=== PATIENT | male | born 1955 | race Caucasian/White ===

== ENCOUNTER → 2023-06-05 12:37 | Outpatient (REF) | payer MEDICARE, OTHER, SELFPAY | LOC: RAD 12:37 | PROVIDERS: ATTENDING PHYSICIAN Family Medicine | DX: F17.210 Nicotine dependence, cigarettes, uncomplicated (principal); Z13.6 Encounter for screening for cardiovascular disorders; I10 Essential (primary) hypertension | CPT/HCPCS: 76770 ==

== ENCOUNTER → 2023-12-17 09:22 | Outpatient (REF) | payer MEDICARE, OTHER, SELFPAY ==
[2023-12-17 11:24] LABS: % Eosinophils 5.4 % (0-6); % Immature Granulocytes 0.4 % (0-0.5); % Lymphocytes 22.4 % (20.5-51.1); % Monocytes 7.7 % (1.7-9.3); % Neutrophils 63.1 % (42.2-75.2); Absolute Basophils 0.1 10^3/uL (0-0.2); Absolute Eosinophils 0.4 10^3/uL (0-0.7); Absolute Lymphocytes 1.5 10^3/uL (1.2-3.4); Absolute Monocytes 0.5 10^3/uL (0.1-0.6); Absolute Neutrophils 4.4 10^3/uL (1.4-6.5); Hematocrit 32.6 % (39.0-52.0); Hemoglobin 11.5 g/dL (13.0-18.0); Mean Corp Hgb Conc. 35.3 g/dL (33.0-37.0); Mean Corpuscular Hgb 32.8 pg (27.0-31.0); Mean Corpuscular Volume 92.9 fL (80.0-94.0); Mean Platelet Volume 9.6 fL (7.4-10.4); Nucleated Red Blood Cells % 0 % (-); Platelet Count 215 10^3/uL (130-400); Red Blood Cell Count 3.51 10^6/uL (4.70-6.10); Red Cell Dist. Width 12.8 % (11.5-14.5); Urine Albumin 2+ (Neg - Trace); Urine Bilirubin Negative (Negative); Urine Character Clear (Clear); Urine Color Yellow; Urine Glucose Negative (Negative); Urine Ketone Negative (Negative); Urine Leukocyte Negative (Negative); Urine Nitrite Negative (Negative); Urine Occult Blood Negative (Negative); Urine Urobilinogen Negative (Neg - 1+); White Blood Cell Count 6.9 10^3/uL (4.8-10.8)
[2023-12-17 11:40] LABS: Urine Bacteria Few (Negative); Urine Red Blood Cell 0-2 /HPF (0-2); Urine Squamous Cell 0-2 /LPF (Few); Urine White Cell 0-2 /HPF (0-5)
[2023-12-17 11:50] LABS: ALT (SGPT) 73 U/L (0-50); AST (SGOT) 49 U/L (17-59); Alkaline Phosphatase 85 U/L (38-126); Blood Urea Nitrogen 23 mg/dl (9-20); Calcium 8.9 mg/dl (8.4-10.2); Carbon Dioxide 23 mmol/L (22-30); Chloride 107 mmol/L (98-107); Glucose 127 mg/dl (70-99); HDL Cholesterol 30 mg/dl; LDL Cholesterol, Calculated 59 mg/dl; Potassium 5.3 mmol/L (3.5-5.1); Sodium 140 mmol/L (135-145); Total Bilirubin 0.4 mg/dl (0.2-1.3); Total Cholesterol 139 mg/dl (50-199); Total Protein 6.5 g/dl (6.3-8.2); Triglyceride 254 mg/dl (10-149); Very Low Density Lipoprotein 50 mg/dl (0-30); eGFR > 60.00
[2023-12-17 12:03] LABS: Glycohemoglobin (HgbA1c) 5.8 % (4.0-5.6)
[2023-12-17 12:17] LABS: PSA, Total - Screen 0.96 ng/ml (0.0-4.0)
[2023-12-17 13:03] LABS: Microalbumin, Random Urine > 57.0 mg/dl (0.6-1.7)
== END ==
LOC: HWRAD 09:22
PROVIDERS: ATTENDING PHYSICIAN Family Medicine
DX: F17.210 Nicotine dependence, cigarettes, uncomplicated (principal); Z00.00 Encounter for general adult medical examination without abnormal findings; Z12.5 Encounter for screening for malignant neoplasm of prostate; E11.59 Type 2 diabetes mellitus with other circulatory complications; E11.21 Type 2 diabetes mellitus with diabetic nephropathy; E78.2 Mixed hyperlipidemia
CPT/HCPCS: 36415; 71271; 80053; 80061; 81003; 81015; 82043; 82570; 83036; 85025; G0103

== ENCOUNTER 2024-03-18 17:50 | Observation (INO) | payer MEDICARE, OTHER, SELFPAY ==
[2024-03-18 12:01] VITALS: BP 169/78
[2024-03-18 12:16] VITALS: BMI 37.4
[2024-03-18 12:28] LABS: % Basophils 0.7 % (0-2); % Eosinophils 3.1 % (0-6); % Immature Granulocytes 0.5 % (0-0.5); % Lymphocytes 22.8 % (20.5-51.1); % Monocytes 7.3 % (1.7-9.3); % Neutrophils 65.6 % (42.2-75.2); Absolute Basophils 0.1 10^3/uL (0-0.2); Absolute Eosinophils 0.2 10^3/uL (0-0.7); Absolute Lymphocytes 1.8 10^3/uL (1.2-3.4); Absolute Monocytes 0.6 10^3/uL (0.1-0.6); Hematocrit 33.3 % (39.0-52.0); Hemoglobin 11.4 g/dL (13.0-18.0); Mean Corp Hgb Conc. 34.2 g/dL (33.0-37.0); Mean Corpuscular Volume 93.5 fL (80.0-94.0); Mean Platelet Volume 9.6 fL (7.4-10.4); Nucleated Red Blood Cells % 0 % (-); Platelet Count 219 10^3/uL (130-400); Red Blood Cell Count 3.56 10^6/uL (4.70-6.10); Red Cell Dist. Width 12.5 % (11.5-14.5); White Blood Cell Count 7.7 10^3/uL (4.8-10.8)
--- NOTE | 2024-03-18 12:40 | ED.GENMED ---
History of Present Illness
General
Chief Complaint: Chest Problem
Source: patient
Exam Limitations: none
Time Seen by Provider: 03/18/24 12:24
History of Present Illness
History of Present Illness:
68-year-old male woke up 3 mornings ago with some difficulty with his vision almost a double vision like episode. Upon standing he had disequilibrium. No vertigo. He also had some brief vague left chest discomfort vague in nature. Not exertional
no shortness of breath nausea or diaphoresis. The following day, 2 days ago, he had recurring episodes of this visual issue with disequilibrium once in the morning once in the afternoon without chest pain. Yesterday he had another episode of
disequilibrium/visual issues with brief nonexertional chest discomfort. This is his first chance to get to the hospital. No symptoms today
Past History
Past History
ED Past Medical History: HTN, Hypercholesterolemia and NIDDM
ED Past Surgical History: Orthopedic and Urological
Review of Systems
Review of Systems
All Other Systems: Not applicable
Constitutional: Denies fever or chills
Respiratory: Reports no symptoms
ABD/GI: Reports no symptoms
Neurological: Denies headache, weakness or numbness
Phy Exam
Physical Exam
Physical Exam:
GENERAL: Alert and oriented in no apparent distress
EYE: Orbits normal.
NECK: Supple, questionable left carotid bruit
ENT: Pharynx without erythema
CARDIAC: Regular rate and rhythm without any obvious murmurs.
LUNGS: Clear breath sounds,normal
ABDOMEN: Soft, without focal tenderness or distention
NEUROLOGICAL: Alert and oriented , speech normal. Cranial nerves II through XII intact. [id number] normal. No drift. Lower extremity strength normal. Extraocular muscles intact
SKIN: Warm and dry, no rash or lesion, no discoloration, skin intact.
MUSCULOSKELETAL: No edema,no deformity.Good color
PSYCH: Normal and appropriate interaction.
Course
Orders/Labs/Results
Orders:
Orders
03/18/24 11:57
Electrocardiogram (*1) Urgent
Reason for Study: Chest Pain
03/18/24 11:58
EKG- Treatment ONCE
03/18/24 12:19
Complete Blood Count/With Diff Urgent
Comprehensive Metabolic Panel Urgent
Troponin I Urgent
03/18/24 12:38
CT Head W/o Iv Contrast Urgent
Comment:
Reason For Exam: Intermittent disequilibrium/double vision
CT Neck Angio W/wo Iv Contrast Urgent
Comment:
Reason For Exam: Intermittent disequilibrium/double vision/left car
03/18/24 13:04
CXR2 [CR Chest - 2 Views ] Urgent
Comment:
Reason For Exam: cp
03/18/24 13:55
MRI Brain [MR Brain Without Contrast] Routine
Comment:
Reason For Exam: diplopia
OK for patient to be off Cardiac Monitoring for MRI: No
Recent pill cam endoscopy?: No
03/18/24 14:00
Aspirin Low Dose EC [Aspir Low (Enteric Coated)] 81 mg PO DAILY
03/18/24 14:31
Clopidogrel Bisulfate [Plavix] 75 mg PO NOW STA
03/18/24 14:56
Acetylcholine Receptor Bind Ab [S] Routine
Alcohol Routine
T4, Free [Free T4] Routine
TSH Reflex To Free T4 Routine
Vitamin B1, Whole Blood [S] Routine
03/18/24 15:16
Urine Drug Abuse Screen Routine
Date Specimen was Collected: 03/18/24
Time Specimen was Collected: 15:14
Abnormal Lab Results
03/18/24
12:19
RBC 3.56 L 10^6/uL
(4.70-6.10)
Hgb 11.4 L g/dL
(13.0-18.0)
Hct 33.3 L %
(39.0-52.0)
MCH 32.0 H pg
(27.0-31.0)
Carbon Dioxide 19 L mmol/L
(22-30)
BUN 28 H mg/dl
(9-20)
Glucose 175 H mg/dl
(70-99)
ALT 51 H U/L
(0-50)
03/18/24 12:19
03/18/24 12:19
Vital Signs
Initial and Last Documented VS:
Initial Vital Signs
Temp Pulse Resp BP Pulse Ox
98.2 F 88 16 169/78 99
03/18/24 12:01 03/18/24 12:01 03/18/24 12:01 03/18/24 12:01 03/18/24 12:01
Last Documented Vital Signs
Temp Pulse Resp BP Pulse Ox
97.9 F 70 22 142/71 98
03/18/24 15:18 03/18/24 15:15 03/18/24 15:15 03/18/24 15:15 03/18/24 15:15
MDM/Problems Addressed
Differential Diagnosis Includes:
68-year-old male presents with 2 types of symptoms. Intermittent nonexertional left-sided chest discomfort. Currently asymptomatic. EKG normal. Troponin pending. Likely will be negative. I cannot relate this to his episodes of visual
issues/disequilibrium. Neurologically stable. Questionable left carotid bruit. Warrants a cardiac/neurologic workup. I did ask neurology for their opinion.
*Radiology
Radiology exam reviewed: radiology read reviewed (Negative CT head)
*Pulse Oximetry
Patient hypoxic: no
*EKG
Interpretation: normal
Comparison EKG: no changes
Heart Rate: 90
Rate: normal
Rhythm: sinus
[place]: normal axis
Interval: normal interval
QRS Pattern: normal QRS
Ischemia: no ischemia
*Check Grader Interpretation
Rate: normal
Interpretation: normal
Heart Rate: 88
Rhythm: sinus
*Critical Care Note
Total Time (30-74mins, 75-104mins- exclusive of procedures): Not Applicable
Data Reviewed
Review of Other/Old Records Reveals: Labs, Records and Testing
Update Note
Update Note:
Seen by neurology who recommended admission, aspirin, Plavix.
ED Attending Note
-
Portions of this chart may have been created with voice recognition software.� Occasional wrong word or��sound alike� substitutions may have occurred due to the inherent limitations of voice recognition software.
Discharge Plan
Departure
Patient Disposition: Admit
Date of Disposition: 03/18/24
Time of Disposition: 14:31
Presentation/result/management discussed w/ accepting MD/DO: neuro
Discharge Problem:
Possible cerebellar CVA, Intermittent chest pain
Prescriptions:
No Action
atorvastatin [Lipitor] 20 mg Tablet
20 mg PO HS
lisinopril 20 mg Tablet
20 mg PO DAILY
Theragen Tablet
1 tab PO DAILY
diphenhydramine-acetaminophen [Acetaminophen PM] 25-500 mg Tablet
2 tab PO HSPRN PRN (Reason: sleep)
metformin 500 mg Tablet Extended Release 24hr
1,000 mg PO BID
Referrals:
Lobito Lowe DO [Family Provider] -
Interventions
Interventions:
*Risk Screen - Suicide Last Done: 03/18/24 12:01
*General Assessment Last Done: 03/18/24 12:17
*Neglect/Abuse Screening Last Done: 03/18/24 12:01
ED- Fall Risk Assessment Last Done: 03/18/24 14:00
*ED COVID-19 Vaccine History Last Done: 03/18/24 15:23
ED- Cardiac Assessment Last Done: 03/18/24 15:29
ED- Pulmonary Assessment Last Done: 03/18/24 15:29
Discharge Date and Time
Print Language: GEORGIAN
[2024-03-18 12:42] LABS: ALT (SGPT) 51 U/L (0-50); AST (SGOT) 41 U/L (17-59); Albumin 4.1 g/dl (3.5-5.0); Alkaline Phosphatase 64 U/L (38-126); Blood Urea Nitrogen 28 mg/dl (9-20); Calcium 8.7 mg/dl (8.4-10.2); Carbon Dioxide 19 mmol/L (22-30); Chloride 106 mmol/L (98-107); Estimated Creatinine Clearance 110 ml/min; Glucose 175 mg/dl (70-99); Potassium 5.1 mmol/L (3.5-5.1); Sodium 139 mmol/L (135-145); Total Bilirubin 0.2 mg/dl (0.2-1.3); Total Protein 6.7 g/dl (6.3-8.2); eGFR > 60.00
[2024-03-18 12:54] LABS: Troponin I < 0.012 ng/ml
--- NOTE | 2024-03-18 13:35 | CON.NEURO ---
Consultation
Order
Date of Consultation: 03/18/24
Requesting Provider: Dr. Mike Goff
Reason for Consult: Diplopia
Neurology consultation note.
HPI: This is an 68-year-old right-handed man who presented to [facility] on 03/18/2024 with visual symptoms.
According to the patient he developed an acute intermittent painless binocular horizontal diplopia on 03/16/2024. He states that his symptoms were worse in the morning and early evening and have been improving in terms of duration and severity. He
is not sure about triggers. Due to transportation limitations patient medical attention has been delayed. No reports of eye pain, trauma, headache, ptosis, dysphagia, dysarthria or weakness.
ER VS: 173/73,76 , afebrile.
NSR, QTc Int : 415 ms
PDMP: No recently prescribed medication
Labs:Glucose�175, normal WBC, sodium, creatinine
PMH:HTN, DLP, IGT, BMI 37
PSH:BL knee arthroscopies, bilateral cataract surgery(2 months ago).
SH: , retired [employer], light smoker, denied excessive alcohol
FH:son-tremor
All:PNC
ROS:Constitutional: Negative. Negative for chills, fever and unexpected weight change.
HENT: Positive for hearing impaired
Eyes: Negative. Negative for photophobia, pain and visual disturbance.
Respiratory: Negative for cough, choking and shortness of breath.
Cardiovascular: Negative for chest pain, palpitations and leg swelling.
Gastrointestinal: Negative for abdominal pain and vomiting.
Endocrine: Negative. Negative for cold intolerance.
Genitourinary: Negative for dysuria, flank pain and urgency.
Musculoskeletal: Positive for intermittent back
Skin: Negative for rash.
Allergic/Immunologic: Negative. Negative for immunocompromised state.
Neurological: Positive for intermittent imbalance
Psychiatric/Behavioral: Negative for behavioral problems, confusion and hallucinations.
General: Well developed. In no acute distress.
Cardio: Regular rate and rhythm without murmur. Extremities are without cyanosis or edema.
Neuro:
Mental Status: Alert, oriented to person, place, and date. Normal attention and recall. Good fund of knowledge. Follows complex requests across the midline. Comprehension, naming, and repetition intact. Immediate and delayed recall 3/3.
Cranial Nerves: . Pupils are equally round and reactive to light. EOMs full. Visual cadet full to confrontation. No ptosis. No nystagmus. V1-V3 intact to light touch and pinprick bilaterally, symmetric. Face symmetric. Poor hearing AU. The
palate elevated well. SCMs and traps 5/5. Tongue midline. No dysarthria.
Motor: Normal bulk and tone. No pronator or arm drift. Strength 5/5 throughout. No clonus.
Reflexes: 2+ throughout the upper extremities and 1+ knees. . Plantar responses flexor bilaterally.
Sensory: Normal vibration at the toes
Coordination: Bilateral action hand tremor
Gait: deferred
Assessment and Plan:
I. Fluctuating painless horizontal diplopia. Differential diagnosis includes disorders of muscle and restrictive syndromes (isolated weakness of lateral rectus muscle, thyroid eye disease, neuromuscular junction disorders), central disorders (spasm
of the near reflex, midbrain pseudo-sixth nerve palsy).
II. HTN
III.BL SNHL
-Fall precaution
-Please obtain CTA head and neck
-Brain MRI without jono
-Aspirin 81 mg once a day, Plavix 75 mg twice a day
-Ophthalmology consult
-Please check TFTs, MG panel, urine tox, EtOH level
I personally reviewed all radiology and labs along with past medical records pertinent to current medical problems. Total time spent in patient care is 60 minutes.
Thank you for allowing us to participate in the care of this patient. We will continue to follow. Please do not hesitate to contact us with any questions or concerns.
Subjective/Objective
Subjective Data
Date of Service: March 18, 2024
Objective Data
Vital Signs
Temp Pulse Resp BP Pulse Ox
36.8 C 84 17 169/78 96
03/18/24 12:01 03/18/24 13:00 03/18/24 13:00 03/18/24 12:01 03/18/24 12:17
Lab Results
03/18/24 12:19
03/18/24 12:19
Sodium 139 mmol/L (135-145) 03/18/24 12:19
Potassium 5.1 mmol/L (3.5-5.1) 03/18/24 12:19
BUN 28 mg/dl (9-20) H 03/18/24 12:19
Glucose 175 mg/dl (70-99) H 03/18/24 12:19
Calcium 8.7 mg/dl (8.4-10.2) 03/18/24 12:19
Patient Allergies
Cephalosporins Allergy (Verified 02/03/21 18:31)
Unknown
penicillin V Allergy (Verified 02/03/21 18:31)
Hives
Penicillins Allergy (Verified 02/03/21 18:31)
Hives
Medications
-
Home Medications
�Medication �Instructions �Recorded
hydrocodone 5 mg-acetaminophen 325 1 tab PO Q4HPRN PRN severe pain 02/03/21
mg tablet #10 tabs
Vital Signs and Labs
-
Vital Signs and Labs:
Vital Signs
Temp Pulse Resp BP Pulse Ox
36.8 C 84 17 169/78 96
03/18/24 12:01 03/18/24 13:00 03/18/24 13:00 03/18/24 12:01 03/18/24 12:17
Lab Results
03/18/24 12:19
03/18/24 12:19
Sodium 139 mmol/L (135-145) 03/18/24 12:19
Potassium 5.1 mmol/L (3.5-5.1) 03/18/24 12:19
BUN 28 mg/dl (9-20) H 03/18/24 12:19
Glucose 175 mg/dl (70-99) H 03/18/24 12:19
Calcium 8.7 mg/dl (8.4-10.2) 03/18/24 12:19
Home Medications
-
Home Medications
hydrocodone 5 mg-acetaminophen 325 mg tablet 1 tab PO Q4HPRN PRN severe pain #10 tabs 02/03/21
[2024-03-18] MEDS: PLAVIX 75 MG PO (14:54)
[2024-03-18] MEDS: ASPIR LOW (ENTERIC COATED) 81 MG PO (14:54)
[2024-03-18 15:15] VITALS: BP 142/71
--- NOTE | 2024-03-18 15:18 | EDRN ---
Thursday pt had trouble focusing and was dizzy. Thursday was better. morning it started again and 'faded in and out all day.' Pt felt his vision was overlapped, not focused intermittently. Pt came to ED today because his son was able to
drive him here. Pt adds he thought he had some tightness in his chest Thursday through also. Pt has not had any of these symptoms today 'I feel like the regular knuckle head I am.' Pt denies cp, sob, abd pain, n/v, fever/chills/cough,
urinary symptoms, headache. Pt offers no complaints today.
[2024-03-18 15:20] LABS: Alcohol None Detected
[2024-03-18 15:36] LABS: Free T4 0.99 ng/dl (0.78-2.19)
[2024-03-18 15:44] LABS: Amphetamines Negative (Negative); Barbiturates Negative (Negative); Benzodiazepines Negative (Negative); Buprenorphine Negative (Negative); Cocaine Negative (Negative)
[2024-03-18 15:45] LABS: Marijuana Negative (Negative); Methadone Negative (Negative); Methamphetamines Negative (Negative); Opiates Negative (Negative); Phencyclidine Negative (Negative); Tricyclic Antidepressants Negative (Negative)
[2024-03-18 15:50] LABS: TSH Reflex To Free T4 2.13 uIU/ml (0.47-4.68)
--- NOTE | 2024-03-18 15:51 | W.PN.UPDATE ---
Update Note
Progress Note Update
This note serves as an addendum to the H&P by survey interviewer JOANNE Krysta RUELAS
HPI
68M Rt handed person , smoker Obesity BMI 37 HX HTN[facility].
- per patient , acute intermittent painless binocular double vision on 03/16/2024.
- symptoms were worse in the morning and early evening
- have been improving in terms of duration and severity. He is not sure about triggers.
Due to transportation limitations patient medical attention has been delayed.
ROS
No reports of eye pain, trauma, headache, ptosis, dysphagia, dysarthria or weakness.
PMH:as above
Vital Signs
Temp Pulse Resp BP Pulse Ox
97.9 F 70 22 142/71 98
03/18/24 15:18 03/18/24 15:15 03/18/24 15:15 03/18/24 15:15 03/18/24 15:15
PE:
General: NAD
HEENT: ALYSSA .
EOMs full. Visual cadet full to confrontation. No ptosis. No nystagmus.
Symmetric Face symmetric.
Poor hearing AU
Tongue midline.
No dysarthria.
Cardio: RRR S1 S2
Neuro: Alert, oriented to person, place, and date. Normal attention and recall.
Follows complex task
MS: No pronator or arm drift. Strength 5/5 throughout. No clonus.
Coordination: Bilateral action hand tremor
Gait: deferred
Abnormal Lab Results
03/18/24
12:19
RBC 3.56 L
Hgb 11.4 L
Hct 33.3 L
MCH 32.0 H
Carbon Dioxide 19 L
BUN 28 H
Glucose 175 H
ALT 51 H
HCT
No evidence of acute intracranial abnormality.
CT Neck Angio W/wo Iv Contrast
Atherosclerotic disease of the proximal internal carotid arteries bilaterally, with measurements of diameter reduction given above. No CT angiographic evidence to suggest hemodynamically significant stenosis of either proximal ICA.
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
Dominant left vertebral artery with smaller caliber hypoplastic right vertebral artery. No CT angiographic evidence to suggest vertebral artery dissection. Normal appearance of the basilar artery and the visualized posterior cerebral arteries.
Percent stenosis is calculated using NASCET criteria.
ASSESSMENT & PLAN
Fluctuating painless horizontal diplopia.
DDX: eval for CVA, peripheral origins as per Neuro and central origin
Benign HTN
- Fall precaution
- CTA head and neck
- Brain MRI without jono
- Aspirin and Plavix daily
- check TFTs, MG panel, urine tox, EtOH level
- Ophthalmology consult
- Neuro consult noted
DVT Px: SCD
Full code
IVU
--- NOTE | 2024-03-18 16:29 | HPS.HSE ---
Family Physician
-
Family Physician: Lobito Lowe DO
Chief Complaint
-
Diplopia
History of Present Illness
68-year-old male complaining of intermittent painless horizontal diplopia that began on 03/15/2024 was persistent all day then intermittent on Thursday and but none today. He reports the symptoms were worse in the morning and early
evening . He came to the ER today because he was unable to get medical treatment for the past 2 days due to lack of transportation. He denies headache, sore throat, rhinorrhea, cough, weakness, chest pain, palpitations, cough, shortness of breath,
abdominal pain, nausea, vomiting, diarrhea. He has past medical history of HTN, DM 2, HLD, class II obesity, active smoker, cataract extraction bilateral eyes with lens implants august 2023 Dr. Tayla Becker
Medical History
Past Medical History
Past Medical History: Reports Other
Additional Past Medical History:
HTN, DM 2, HLD, class II obesity, active smoker, cataract extraction bilateral eyes with lens implants august 2023 Dr. Tayla Becker
Past Surgical History: Reports Other
Additional Past Surgical History:
cataract extraction bilateral eyes with lens implants august 2023 Dr. Tayla Becker
Social History
Tobacco: Smoker (1 pack/day x 53 years)
Alcohol: Occasional (3 times a week 1 jyotsna)
Personal: (1-1/2 years)
Living: Alone
Employment: Retired ([employer] and then [employer] at age 52)
Family History
Family History: Other (Mother of sepsis father of motor vehicle accident patient has 1 full blood a brother who is healthy 1 maternal half brother who is healthy)
Allergies / Home Medications
Allergies reflects when Allergies were last updated in [employer].
Home Medications with original date entered in [employer]
Allergy/Medication List:
Allergies
Allergy/AdvReac Type Severity Reaction Status Date / Time
penicillin V Allergy Hives Verified 03/18/24 15:24
Penicillins Allergy Hives Verified 03/18/24 15:24
Home Medications
atorvastatin 20 mg tablet (Lipitor) 20 mg PO HS 03/18/24
diphenhydramine 25 mg-acetaminophen 500 mg tablet (Acetaminophen PM) 2 tab PO HSPRN PRN sleep 03/18/24
lisinopril 20 mg tablet 20 mg PO DAILY 03/18/24
metformin 500 mg tablet,extended release 24hr (osmotic) 1,000 mg PO BID 03/18/24
therapeutic multivitamin 1 tab PO DAILY 03/18/24
Review of Systems
-
History Source: Patient and Family (Son at bedside)
A 12 point ROS was completed and negative except as noted: Yes
Constitutional: Denies Fever or Chills
EENT: Reports Other (Bilateral horizontal diplopia x 3 days resolved today); Denies Sore Throat or Runny Nose
Respiratory: Denies Cough or Trouble Breathing
Cardiac: Denies Chest Pain, Diaphoresis, Palpitations or Syncope
Abdomen/GI: Denies Abdominal Pain, Nausea, Vomiting, Diarrhea, Constipated, Bloody Stools or Black Stools
: Denies Dysuria, Frequency, Flank Pain, Incontinence, Difficulty Voiding or Urgency
Musculoskeletal: Denies Joint Pain or Edema
Skin: Denies Itching or Rash
Neurological: Denies Dizzy, Headache, Weakness or Numbness
Endocrine: Reports No Symptoms
Hematologic/Lymphatic: Reports No Symptoms
Psych: Reports Calm
Physical Exam
Vital Signs
Vital Signs
Temp Pulse Resp BP Pulse Ox
97.9 F 70 22 142/71 98
03/18/24 15:18 03/18/24 15:15 03/18/24 15:15 03/18/24 15:15 03/18/24 15:15
Physical Exam
General: No Apparent Distress, Comfortable and Conversant; No Pain, Fever or Chills
HEENT: NormoCephalic, Anicteric, PERRLA (3 mm), [place] Conjunctivae and No Ptosis
Respiratory: Clear; No Wheezes, Rales or Rhonchi
Cardiac: S1/S2 and Regular Rhythm; No Murmur, Rub, Gallop or Peripheral Edema
GI: Soft, Non Tender, Non Distended, Normal Bowel Sounds and No Hepatosplenomegaly
Rectal: Deferred by Provider
Musculoskeletal: No Clubbing, No Cyanosis and No Edema
Skin: Warm and Dry; No Rash or Jaundice
Neuro: AO x 3, No Motor Deficits, Nonfocal/grossly intact, Cranial Nerves Intact and No Sensory Deficits; No Slurred Speech, Facial Droop, Tremors or Sedated
Psych: Calm
Laboratory Results
-
03/18/24 12:19
03/18/24 12:19
Laboratory Results
Total Bilirubin 0.2 mg/dl (0.2-1.3) 03/18/24 12:19
AST 41 U/L (17-59) 03/18/24 12:19
ALT 51 U/L (0-50) H 03/18/24 12:19
Alkaline Phosphatase 64 U/L (38-126) 03/18/24 12:19
Troponin I < 0.012 ng/ml 03/18/24 12:19
Data Reviewed
-
CT Scan: Report Reviewed by me
Lab Data: Labs Reviewed by me
Impression/Plan
-
Impression/plan:
OBS telemetry
#Binocular horizontal diplopia concern for possible giant cell arteritis
-Consult neurology
-Consult ophthalmology-Dr. Mccarthy
Discussion with Dr. Mccarthy from ophthalmology who states they are on low impact call do not see patient is inpatient however is recommending stat sed rate and CRP for concerns of giant cell arteritis and will see patient as follow-up or patient
may see his status controller Dr. Tayla Becker
-CTA head and neck
-Brain MRI without
-Continue aspirin 81 mg daily, start Plavix 75 mg daily
-TSH with free T4-normal
-UDS, EtOH negative
-Check ESR, CRP
PT/OT eval
CTA head neck
1. Atherosclerotic disease of the proximal internal carotid arteries bilaterally, with measurements of diameter reduction given above.
2. No CT angiographic evidence to suggest hemodynamically significant stenosis of either proximal ICA.
3. 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
4. Dominant left vertebral artery with smaller caliber hypoplastic right vertebral artery. No CT angiographic evidence to suggest vertebral artery dissection. Normal appearance of the basilar artery and the
visualized posterior cerebral arteries.
CXR: No acute cardiopulmonary abnormalities
#Nicotine abuse
1 pack/day x 53 years
Cessation advised
#HTN�benign
BP 142/71
-Continue lisinopril 20 mg daily
#HLD
-Check lipid profile
-Continue atorvastatin 20 mg at bedtime
#DM 2
Accu-Cheks with SSI, check HgbA1c
Hold metformin at 1000 mg twice daily
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
-Weight loss recommended, low-fat diabetic diet
DVT prophylaxis
SCDs
Full code per patient with son present at bedside
[2024-03-18 17:17] VITALS: BP 115/92
[2024-03-18 17:59] LABS: Erythrocyte Sed Rate 22 mm/hour (0-20)
[2024-03-18 18:08] LABS: C-Reactive Protein < 5.00 mg/L (0.0-10.00)
[2024-03-18 18:49] VITALS: BMI 34.9
[2024-03-18 19:34] VITALS: BP 155/76
[2024-03-18] MEDS: NICODERM TRANSDERMAL 21 MG TRANSDERM (20:46)
[2024-03-18] MEDS: LIPITOR 20 MG PO (21:01)
[2024-03-18 23:09] LABS: Glucose - Point of Care 172 mg/dl (70-99)
[2024-03-18 23:29] VITALS: BP 124/66
--- NOTE | 2024-03-18 23:29 | PTCARENOTE ---
P received from ED via stretcher at change of shift. Telemetry orders> SR w/ First degree AV block. VSS> afebrile, HR 69, RR 18, BP 155/76, pox 97% room air. PMH and medications reviewed by this RN and patient. Plan of care discussed. Pt is a 1PPD
smoker, Nicotine patch ordered and applied. Pt oriented to room, call fenton within reach.
[2024-03-19 03:09] VITALS: BP 136/61
[2024-03-19 07:00] VITALS: BP 142/60
[2024-03-19 07:14] LABS: % Basophils 0.6 % (0-2); % Eosinophils 3.6 % (0-6); % Immature Granulocytes 1.6 % (0-0.5); % Lymphocytes 24.6 % (20.5-51.1); % Monocytes 9.3 % (1.7-9.3); % Neutrophils 60.3 % (42.2-75.2); Absolute Basophils 0.1 10^3/uL (0-0.2); Absolute Eosinophils 0.3 10^3/uL (0-0.7); Absolute Immature Granulocytes 0.1 10^3/uL (0-0.05); Absolute Lymphocytes 2.1 10^3/uL (1.2-3.4); Absolute Monocytes 0.8 10^3/uL (0.1-0.6); Hematocrit 32.1 % (39.0-52.0); Hemoglobin 10.8 g/dL (13.0-18.0); Mean Corp Hgb Conc. 33.6 g/dL (33.0-37.0); Mean Corpuscular Volume 95.3 fL (80.0-94.0); Mean Platelet Volume 9.9 fL (7.4-10.4); Nucleated Red Blood Cells % 0 % (-); Platelet Count 209 10^3/uL (130-400); Red Blood Cell Count 3.37 10^6/uL (4.70-6.10); Red Cell Dist. Width 12.4 % (11.5-14.5); White Blood Cell Count 8.4 10^3/uL (4.8-10.8)
[2024-03-19 07:58] LABS: ALT (SGPT) 54 U/L (0-50); AST (SGOT) 42 U/L (17-59); Albumin 3.7 g/dl (3.5-5.0); Alkaline Phosphatase 70 U/L (38-126); Blood Urea Nitrogen 27 mg/dl (9-20); Calcium 8.3 mg/dl (8.4-10.2); Carbon Dioxide 21 mmol/L (22-30); Chloride 106 mmol/L (98-107); Estimated Creatinine Clearance 113 ml/min; Glucose 89 mg/dl (70-99); HDL Cholesterol 22 mg/dl; LDL Cholesterol, Calculated 50 mg/dl; Potassium 4.5 mmol/L (3.5-5.1); Sodium 137 mmol/L (135-145); Total Bilirubin 0.2 mg/dl (0.2-1.3); Total Cholesterol 115 mg/dl (50-199); Total Protein 6.1 g/dl (6.3-8.2); Triglyceride 216 mg/dl (10-149); Very Low Density Lipoprotein 43 mg/dl (0-30); eGFR > 60.00
[2024-03-19 08:29] LABS: Glucose - Point of Care 135 mg/dl (70-99)
[2024-03-19] MEDS: ZESTRIL 20 MG PO (09:31)
[2024-03-19] MEDS: ASPIR LOW (ENTERIC COATED) 81 MG PO (09:32)
[2024-03-19] MEDS: PLAVIX 75 MG PO (09:32)
[2024-03-19] MEDS: THERAGRAN 1 TABLET PO (09:33)
[2024-03-19 09:35] VITALS: BP 176/88; PULSE 76; O2SAT 99
[2024-03-19 09:43] VITALS: BP 176/88
[2024-03-19 11:00] VITALS: BP 125/66
[2024-03-19 12:16] LABS: Glycohemoglobin (HgbA1c) 5.7 % (4.0-5.6)
--- NOTE | 2024-03-19 12:30 | W.PN.NEURO.1 ---
Today's Communication / Plan
-
.
Subjective/Objective
Subjective Data
Date of Service: March 19, 2024
Neurology Follow Up Note.
Mr. Bellamy states that he has not had recurrent visual symptoms since the hospital presentation. No reports of headaches, motor or sensory deficits
Brain MRi-pending.
Labs:Glucose�175, normal WBC, sodium, creatinine
ESR-22, CRP, TSH-normal.
CTA head/neck-no evidence of hemodynamically significant stenosis.
PMH: HTN, DLP, IGT, BMI 37
PSH:BL knee arthroscopies, bilateral cataract surgery(2 months ago).
SH: , retired [employer], light smoker, denied excessive alcohol
FH:son-tremor
All:PNC
ROS:Constitutional: Negative. Negative for chills, fever and unexpected weight change.
HENT: Positive for hearing impaired
Eyes: Negative. Negative for photophobia, pain and visual disturbance.
Respiratory: Negative for cough, choking and shortness of breath.
Cardiovascular: Negative for chest pain, palpitations and leg swelling.
Gastrointestinal: Negative for abdominal pain and vomiting.
Endocrine: Negative. Negative for cold intolerance.
Genitourinary: Negative for dysuria, flank pain and urgency.
Musculoskeletal: Positive for intermittent back
Skin: Negative for rash.
Allergic/Immunologic: Negative. Negative for immunocompromised state.
Neurological: Positive for intermittent imbalance
Psychiatric/Behavioral: Negative for behavioral problems, confusion and hallucinations.
General: Well developed. In no acute distress.
Cardio: Regular rate and rhythm without murmur. Extremities are without cyanosis or edema.
Neuro:
Mental Status: Alert, oriented to person, place, and date. Normal attention and recall. Good fund of knowledge. Follows complex requests across the midline. Comprehension, naming, and repetition intact. Immediate and delayed recall 3/3.
Cranial Nerves: . Pupils are equally round and reactive to light. EOMs full. Visual cadet full to confrontation. No ptosis. No nystagmus. V1-V3 intact to light touch and pinprick bilaterally, symmetric. Face symmetric. Poor hearing AU. The
palate elevated well. SCMs and traps 5/5. Tongue midline. No dysarthria.
Motor: Normal bulk and tone. No pronator or arm drift. Strength 5/5 throughout. No clonus.
Reflexes: 2+ throughout the upper extremities and 1+ knees. . Plantar responses flexor bilaterally.
Sensory: Normal vibration at the toes
Coordination: Bilateral action hand tremor
Gait: deferred
Assessment and Plan:
I. Transient horizontal diplopia.
II. HTN
III. BL SNHL
-Fall precaution
-Aspirin 81 mg once a day, d/c Plavix.
-Mestinon 30 mg 3 times daily if diplopia returns
-Follow up MG panel
-Outpatient neurology follow-up in 1-2 weeks
I personally reviewed all radiology and labs along with past medical records pertinent to current medical problems. Total time spent in patient care is 36 minutes.
Thank you for allowing us to participate in the care of this patient. Please do not hesitate to contact us with any questions or concerns.
Objective Data
Vital Signs
Temp Pulse Resp BP Pulse Ox
36.5 C 72 17 125/66 98
03/19/24 11:00 03/19/24 11:00 03/19/24 11:00 03/19/24 11:00 03/19/24 11:00
Lab Results
03/19/24 06:18
03/19/24 06:18
Sodium 137 mmol/L (135-145) 03/19/24 06:18
Potassium 4.5 mmol/L (3.5-5.1) 03/19/24 06:18
BUN 27 mg/dl (9-20) H 03/19/24 06:18
Glucose 89 mg/dl (70-99) 03/19/24 06:18
Calcium 8.3 mg/dl (8.4-10.2) L 03/19/24 06:18
LDL Cholesterol, Calc 50 mg/dl 03/19/24 06:18
Ur Buprenorphine Negative (Negative) 03/18/24 15:16
Patient Allergies
penicillin V Allergy (Verified 03/18/24 15:24)
Hives
Penicillins Allergy (Verified 03/18/24 15:24)
Hives
Vital Signs and Labs
-
Vital Signs and Labs:
Vital Signs
Temp Pulse Resp BP Pulse Ox
36.5 C 72 17 125/66 98
03/19/24 11:00 03/19/24 11:00 03/19/24 11:00 03/19/24 11:00 03/19/24 11:00
Lab Results
03/19/24 06:18
03/19/24 06:18
Sodium 137 mmol/L (135-145) 03/19/24 06:18
Potassium 4.5 mmol/L (3.5-5.1) 03/19/24 06:18
BUN 27 mg/dl (9-20) H 03/19/24 06:18
Glucose 89 mg/dl (70-99) 03/19/24 06:18
Calcium 8.3 mg/dl (8.4-10.2) L 03/19/24 06:18
LDL Cholesterol, Calc 50 mg/dl 03/19/24 06:18
Ur Buprenorphine Negative (Negative) 03/18/24 15:16
Medications
-
Medications:
Generic Name Dose Route Start Last Admin
Trade Name Freq PRN Reason Stop Dose Admin
Acetaminophen 650 mg 03/18/24 18:46
Acetaminophen 325 Mg Tablet PO 04/15/24 18:45
Q4HPRN PRN
mild pain/HINES/temp> 100.4F
Acetaminophen 1,000 mg 03/18/24 18:55
Acetaminophen 500 Mg Tablet PO 04/15/24 18:54
HSPRN PRN
sleep
Aspirin 81 mg 03/18/24 14:00 03/19/24 09:32
Aspirin 81 Mg (Enteric Coated) Tablet PO 04/15/24 13:59 81 mg
DAILY KIZZY Administration
Atorvastatin Calcium 20 mg 03/18/24 22:00 03/18/24 21:01
Atorvastatin (Lipitor) 20 Mg Tablet PO 04/15/24 21:59 20 mg
HS KIZZY Administration
Clopidogrel Bisulfate 75 mg 03/19/24 08:00 03/19/24 09:32
Clopidogrel 75 Mg Tablet PO 04/16/24 07:59 75 mg
DAILY KIZZY Administration
Dextrose 12.5 grams 03/18/24 18:46
Dextrose 50% (0.5 Grams/Ml) 50 Ml Syringe IV 04/15/24 18:45
[id number] PRN
hypoglycemia
Protocol
Diphenhydramine HCl 50 mg 03/18/24 18:57
Diphenhydramine 50 Mg Capsule PO 04/15/24 18:56
HSPRN PRN
SLEEP
Glucagon 1 mg 03/18/24 18:46
Glucagon 1 Mg Vial IM 04/15/24 18:45
PRN PRN
hypoglycemia
Protocol
Insulin Aspart 0 units 03/19/24 07:30 03/19/24 09:16
Insulin Aspart Low Resistance 300 Units/3 Ml Pen.Injctr SC 04/16/24 07:29 Not Given
AC KIZZY
Protocol
Lisinopril 20 mg 03/19/24 08:00 03/19/24 09:31
Lisinopril 20 Mg Tablet PO 04/16/24 07:59 20 mg
DAILY KIZZY Administration
Multivitamins Therapeutic 1 tablet 03/19/24 08:00 03/19/24 09:33
Multivitamin Tablet PO 04/16/24 07:59 1 tablet
DAILY KIZZY Administration
Nicotine 21 mg 03/18/24 21:00 03/18/24 20:46
Nicotine 21 Mg Patch TRANSDERM 04/15/24 20:59 21 mg
DAILY@21 [facility] Administration
Sodium Chloride 0 flush 03/18/24 19:00
Sodium Chloride 0.9% (Flush) Syringe IV 04/15/24 18:59
PER PROTOCOL KIZZY
Home Medications
-
Home Medications
atorvastatin 20 mg tablet (Lipitor) 20 mg PO HS 03/18/24
diphenhydramine 25 mg-acetaminophen 500 mg tablet (Acetaminophen PM) 2 tab PO HSPRN PRN sleep 03/18/24
lisinopril 20 mg tablet 20 mg PO DAILY 03/18/24
metformin 500 mg tablet,extended release 24hr (osmotic) 1,000 mg PO BID 03/18/24
therapeutic multivitamin 1 tab PO DAILY 03/18/24
[2024-03-19 13:39] LABS: Glucose - Point of Care 120 mg/dl (70-99)
--- NOTE | 2024-03-19 14:25 | CM ---
Reviewed chart, met with patient to obtain information for assessment. Patient stated that he lives with his son, who was at bedside, in a two story home with one step to enter. He described himself as independent with his ADLs, personal care,
dressing and bathing. 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 Patient drives and can transport himself to his appointments and do his own grocery shopping.
Patient denied any DME at home.
He has never had VN services.
He has not been to a SNF.
Patient has a prescription plan and uses, [facility] in [place] for all of his medications.
Patient's PCP is, Lobito Lowe.
Patient stated that he hopes to be discharged today. His son confirmed that he can transport home. Patient expressed no needs.
Plan: Case management will continue to follow and assist with discharge planning. Home when stable.
--- NOTE | 2024-03-19 14:43 | W.PN.HOSP.TC ---
Today's Communication/Plan
-
dc to home
Assessment / Plan
Assessment / Plan
#Binocular horizontal diplopia concern for possible giant cell arteritis
neg ESR/CRP
-Discussed with neurology
okay to dc to home, will need follow up with neuro post dc
-Consult ophthalmology-Dr. Mccarthy
Discussion with Dr. Mccarthy from ophthalmology who states they are on low impact call do not see patient is inpatient however is recommending stat sed rate and CRP for concerns of giant cell arteritis and will see patient as follow-up or patient
will need to
see his geospatial engineer Dr. Tayla Beckerpost dc
-CTA head and neck
-Brain MRI without: No acute intracranial abnormality noted.
Sequelae of mild small vessel ischemic disease
-Continue aspirin 81 mg daily, as per neuro, does not need Plavix 75 mg daily
-TSH with free T4-normal
-UDS, EtOH negative
PT/OT eval
CTA head neck
1. Atherosclerotic disease of the proximal internal carotid arteries bilaterally, with measurements of diameter reduction given above.
2. No CT angiographic evidence to suggest hemodynamically significant stenosis of either proximal ICA.
3. 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
4. Dominant left vertebral artery with smaller caliber hypoplastic right vertebral artery. No CT angiographic evidence to suggest vertebral artery dissection. Normal appearance of the basilar artery and the
visualized posterior cerebral arteries.
CXR: No acute cardiopulmonary abnormalities
#Nicotine abuse
1 pack/day x 53 years
Cessation advised, must stop smoking
#HTN�benign
BP 142/71
-Continue lisinopril 20 mg daily
#HLD
-Check lipid profile
-Continue atorvastatin 20 mg at bedtime
#DM 2
Accu-Cheks with SSI, check HgbA1c
resume metformin at 1000 mg twice daily
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
-Weight loss recommended, low-fat diabetic diet
DVT prophylaxis
SCDs
Full code per patient with son present at bedside
dc to home
see dictated note
Anticipated Discharge: Today
Subjective/Interval History
-
Date of Service: March 19, 2024
Feels well, anxiously awaiting dc
Objective Data
-
Labs:
Laboratory Results
03/19/24
06:18
WBC 8.4
Hgb 10.8 L
Hct 32.1 L
Plt Count 209
Sodium 137
Potassium 4.5
Chloride 106
Carbon Dioxide 21 L
BUN 27 H
Creatinine 0.8
Glucose 89
Calcium 8.3 L
Total Bilirubin 0.2
AST 42
ALT 54 H
Alkaline Phosphatase 70
Vital Signs:
Vital Signs
Temp Pulse Resp BP Pulse Ox
97.7 F 72 17 125/66 98
03/19/24 11:00 03/19/24 11:00 03/19/24 11:00 03/19/24 11:00 03/19/24 11:00
I&O
03/18/24 03/19/24 03/20/24
06:59 06:59 06:59
Intake Total 480 / 480
Balance 480 / 480
Review of Systems
-
History Source: Patient and Family (son in room on second visit)
Constitutional: Reports No Symptoms
EENT: Reports No Symptoms Reported (eye symptoms fully resolved)
Respiratory: Reports No Symptoms
Abdomen/GI: Reports No Symptoms
Physical Exam
-
General: Well Developed, Well Nourished, No Apparent Distress and Obese
HEENT: Normocephalic, Atraumatic and Moist Mucous Membranes
Respiratory: Clear to Auscultation; Negative Wheezes, Rales or Rhonchi
Cardiac: Regular Rhythm and S1/S2
GI: Soft, Nontender and Nondistended
Musculoskeletal: No Clubbing, No Cyanosis and No Edema
[2024-03-19] MEDS: FLUAD (65 yr+) 2024-2025 FORMULA 0.5 ML IM (15:06)
[2024-03-19] MEDS: PREVNAR 20 0.5 ML IM (15:08)
[2024-03-19 15:11] VITALS: BP 122/104
--- NOTE | 2024-03-19 15:26 | W.DS.TRANS ---
DC Summary - [place]
-
Discharge Instructions:
Discharge Diagnosis/Procedures TIA
Diet Low Fat,Diabetic, Carb Controlled
Activity No strenuous activity
Driving Restrictions Not until seen by your Dr
Bathing Restrictions None
Instructions:
Stand-Alone Forms:
Changes to Home Medications: Yes
Discharge Medications:
DC Medications w/original date entered in [facility]
atorvastatin 20 mg tablet (Lipitor) 20 mg PO HS 03/18/24
diphenhydramine 25 mg-acetaminophen 500 mg tablet (Acetaminophen PM) 2 tab PO HSPRN PRN sleep 03/18/24
lisinopril 20 mg tablet 20 mg PO DAILY 03/18/24
metformin 500 mg tablet,extended release 24hr (osmotic) 1,000 mg PO BID 03/18/24
therapeutic multivitamin 1 tab PO DAILY 03/18/24
aspirin 81 mg tablet,delayed release 81 mg PO DAILY #30 tabs 03/19/24
Home Medication Changes
Aspirin 81 mg daily added
Pending Results: No
[2024-03-22 22:47] LABS: Vitamin B1, Whole Blood 140 nmol/L (70-180)
== END 2024-03-19 15:23 | disposition home or self-care (01) ==
LOC: 3 WEST ACU 17:50
PROVIDERS: Clinical Nurse Specialist Family Health; Emergency Medicine; ADMITTING PHYSICIAN Internal Medicine; ATTENDING PHYSICIAN Internal Medicine; EMERGENCY PHYSICIAN Emergency Medicine; FAMILY PHYSICIAN Family Medicine; OTHER PHYSICIAN Psychiatry & Neurology Neurology
DX: H53.2 Diplopia (principal); R07.89 Other chest pain; E78.00 Pure hypercholesterolemia, unspecified; I10 Essential (primary) hypertension; E66.812 Obesity, class 2; J98.11 Atelectasis; Q28.1 Other malformations of precerebral vessels; I49.1 Atrial premature depolarization; I67.82 Cerebral ischemia; I65.23 Occlusion and stenosis of bilateral carotid arteries; F17.210 Nicotine dependence, cigarettes, uncomplicated; E11.9 Type 2 diabetes mellitus without complications; Z79.84 Long term (current) use of oral hypoglycemic drugs; Z68.37 Body mass index [BMI] 37.0-37.9, adult; Z79.02 Long term (current) use of antithrombotics/antiplatelets; Z79.82 Long term (current) use of aspirin; Z88.0 Allergy status to penicillin; Z88.1 Allergy status to other antibiotic agents; Z98.42 Cataract extraction status, left eye; Z98.41 Cataract extraction status, right eye; Z79.4 Long term (current) use of insulin; Z23 Encounter for immunization
CPT/HCPCS: 70450; 70498; 70551; 71046; 80053; 80061; 80306; 82077; 82962; 83036; 84425; 84439; 84443; 84484; 85025; 85652; 86041; 86140; 90662; 90677; 93005; 97162; 97166; 99285; 99406; G0008; G0009; G0378; Q9967

== ENCOUNTER → 2025-04-05 10:41 | Outpatient (REF) | payer MEDICARE, OTHER, SELFPAY ==
[2025-04-05 11:45] LABS: Hematocrit 32.1 % (39.0-52.0); Hemoglobin 11.2 g/dL (13.0-18.0); Mean Corp Hgb Conc. 34.9 g/dL (33.0-37.0); Mean Corpuscular Volume 92.5 fL (80.0-94.0); Nucleated Red Blood Cells % 0 % (-); Platelet Count 260 10^3/uL (130-400); Red Cell Dist. Width 12.7 % (11.5-14.5)
[2025-04-05 12:02] LABS: Urine Character Clear (Clear)
[2025-04-05 12:51] LABS: Urine Squamous Cell 0-2 /LPF (Few)
[2025-04-05 12:52] LABS: Urine Red Blood Cell 0-2 /HPF (0-2); Urine White Cell 0-2 /HPF (0-5)
[2025-04-05 13:32] LABS: Glycohemoglobin (HgbA1c) 5.9 % (4.0-5.9)
[2025-04-05 16:41] LABS: ALT (SGPT) 61 U/L (0-50); AST (SGOT) 46 U/L (17-59); Albumin 3.9 g/dl (3.5-5.0); Alkaline Phosphatase 95 U/L (38-126); Blood Urea Nitrogen 33 mg/dl (9-20); Calcium 8.6 mg/dl (8.4-10.2); Carbon Dioxide 19 mmol/L (22-30); Chloride 106 mmol/L (98-107); Glucose 118 mg/dl (70-99); HDL Cholesterol 30 mg/dl; LDL Cholesterol, Calculated 55 mg/dl; Potassium 5.2 mmol/L (3.5-5.1); Sodium 133 mmol/L (135-145); Total Protein 6.9 g/dl (6.3-8.2); Very Low Density Lipoprotein 54 mg/dl (0-30); eGFR > 60.00
[2025-04-05 16:52] LABS: Microalb - Urine Creatinine 78.700 mg/dl
[2025-04-05 17:22] LABS: PSA, Total - Screen 0.89 ng/ml (0.0-4.0); TSH 3.78 uIU/ml (0.47-4.68)
[2025-04-05 18:16] LABS: Microalbumin, Random Urine > 57.0 mg/dl (0.6-1.7)
== END ==
LOC: REG 10:41
PROVIDERS: ATTENDING PHYSICIAN Family Medicine
DX: E11.21 Type 2 diabetes mellitus with diabetic nephropathy (principal); Z00.00 Encounter for general adult medical examination without abnormal findings; E11.59 Type 2 diabetes mellitus with other circulatory complications; I10 Essential (primary) hypertension; E78.2 Mixed hyperlipidemia; N18.2 Chronic kidney disease, stage 2 (mild); Z12.5 Encounter for screening for malignant neoplasm of prostate; R74.01 Elevation of levels of liver transaminase levels
CPT/HCPCS: 36415; 80053; 80061; 81003; 81015; 82043; 82570; 83036; 84443; 85025; G0103